=== PATIENT | female | born 1990 | race Caucasian/White ===

== ENCOUNTER 2019-03-30 08:27 | Day surgery (SDC) | payer BC ==
[~2019-03-30 08:27] MED LIST: Lactated Ringers 1,000 ML IV SCH; Lidocaine 1%/Sod Bicarbonate in NS 8.4% 1 ML Syringe IDERM PRN; Sodium Chloride 0.9% 10 ML Syringe FLUSH PRN
[2019-03-30] MEDS ORDERED: Sodium Chloride 0.9% 50 ML SDV ONE (08:56)
[2019-03-30] MEDS ORDERED: Bupivacaine 0.5% 30 ML SDV ONE (08:56)
[2019-03-30] MEDS ORDERED: Ampicillin/Sulbactam Na 3 GM in Sodium Chloride 0.9% 100 ML IV ONE (09:15)
[2019-03-30] MEDS ORDERED: Midazolam 1 MG/ML 2 ML SDV ONE (09:44)
[2019-03-30] MEDS ORDERED: fentaNYL 250 MCG/5 ML SDV ONE (09:44)
[2019-03-30] MEDS ORDERED: Lactated Ringers 1,000 ML ONE (09:44)
[2019-03-30] MEDS ORDERED: Lidocaine 1% 4 ML ONE (09:44)
[2019-03-30] MEDS ORDERED: Ondansetron 4 MG/2 ML SDV ONE (09:44)
[2019-03-30] MEDS ORDERED: Rocuronium 50 MG/5 ML Vial ONE ×2 (09:44→10:51)
[2019-03-30] MEDS ORDERED: Propofol 200 MG/20 ML SDV ONE ×3 (09:44→10:31)
[2019-03-30] MEDS ORDERED: Dexamethasone 4 MG/ML 5 ML MDV ONE (09:45)
[2019-03-30] MEDS ORDERED: Ketamine 500 mg/10 ML MDV ONE (10:31)
[2019-03-30] MEDS ORDERED: HYDROmorphone 0.5 MG/0.5 ML Syringe ONE ×2 (10:45→11:54)
[2019-03-30] MEDS ORDERED: Ondansetron 4 MG/2 ML SDV IVPUSH PRN (11:06)
[2019-03-30] MEDS ORDERED: fentaNYL 100 MCG/2 ML SDV IVPUSH PRN (11:06)
[2019-03-30] MEDS ORDERED: HYDROmorphone 0.5 MG/0.5 ML Syringe IVPUSH PRN (11:06)
[2019-03-30] MEDS ORDERED: diphenhydrAMINE 50 MG/ML SDV IVPUSH PRN (11:06)
--- NOTE | 2019-03-30 11:10 | PCM.PREANE ---
Preanesthetic Assessment - Anesthesia/Transfusion/Family Hx Anesthesia History: Prior Anesthesia Without Reaction Family History of Anesthesia Reaction: No Transfusion History: No Prior Transfusion(s) - Review of Systems General: No Symptoms Pulmonary: No Symptoms Cardiovascular: No Symptoms Gastrointestinal: No Symptoms Neurological: Headache (91) Other: Reports: None (Morbid Obesity BMI 42) - Physical Assessment NPO Status Date: 03/29/19 NPO Status Time: 23:30 Pulse: 91 O2 Sat by Pulse Oximetry: 96 Respiratory Rate: 16 Blood Pressure: 143/81 Temperature: 36.6 C Height: 1.8 m Weight: 136.985 kg ASA Class: 2 Mental Status: Alert & Oriented x3 Airway Class: Mallampati = 1 Dentition: Reports: Normal Dentition Thyro-Mental Finger Breadths: 3 Mouth Opening Finger Breadths: 3 ROM/Head Extension: Full Lungs: Clear to Auscultation, Normal Respiratory Effort Cardiovascular: Regular Rate, Regular Rhythm - Lab Values: Laboratory Last Values Urine HCG, Qual Negative (NEGATIVE) 03/30/19 09:45 - Allergies Allergies/Adverse Reactions: Allergies Allergy/AdvReac Type Severity Reaction Status Date / Time Sulfa (Sulfonamide Allergy Hives Verified 03/29/19 14:12 Antibiotics) hydrocodone AdvReac Headache Verified 03/30/19 09:16 oxycodone AdvReac Headache Verified 03/30/19 09:16 - Acknowledgements Anesthesia Type Planned: General Anesthesia Pt an Appropriate Candidate for the Planned Anesthesia: Yes Alternatives and Risks of Anesthesia Discussed w Pt/Guardian: Yes Pt/Guardian Understands and Agrees with Anesthesia Plan: Yes PreAnesthesia Questionnaire HEENT History: Reports: Impaired Vision Cardiovascular History: Reports: None Respiratory History: Reports: None Gastrointestinal History: Reports: None Genitourinary History: Reports: None [employer]PER[employer] HELPER History: Reports: Other (See Below) Other OB/BYN History: DYSPAREUNIA Musculoskeletal History: Reports: None Neurological History: Reports: None Psychiatric History: Reports: None Endocrine/Metabolic History: Reports: Obesity/BMI 30+ Hematologic History: Reports: None Immunologic History: Reports: None Oncologic (Cancer) History: Reports: None Dermatologic History: Reports: None - Past Surgical History Head Surgeries/Procedures: Reports: None HEENT Surgical History: Reports: Tonsillectomy Cardiovascular Surgical History: Reports: None Respiratory Surgical History: Reports: None GI Surgical History: Reports: None Female Surgical History: Reports: Section Male Surgical History: Reports: None Endocrine Surgical History: Reports: None Neurological Surgical History: Reports: None Musculoskeletal Surgical History: Reports: None Oncologic Surgical History: Reports: None Dermatological Surgical History: Reports: None - SUBSTANCE USE Smoking Status *Q: Former Smoker Recreational Drug Use History: No - HOME MEDS Home Medications: Home Meds Naproxen Sodium 220 - 440 mg PO BID PRN 03/29/19 [History] Norethindrone AC-Eth Estradiol [Junel 1.5 mg-30 Mcg Tablet] 1 tab PO DAILY 03/29 [History] - CURRENT (IN HOUSE) MEDS Current Meds: Current Medications Lactated Ringer's (Ringers, Lactated) 1,000 mls @ 125 mls/hr IV ASDIRECTED TORIE Stop: 03/30/19 23:00 Last Admin: 03/30/19 09:00 Dose: 125 mls/hr Lidocaine/Sodium Bicarbonate (Buffered Lidocaine 1% In Ns 8.4%) 0.25 ml IDERM ONETIME PRN PRN Reason: Prior to IV Start Stop: 03/30/19 23:00 Last Admin: 03/30/19 08:59 Dose: 0.25 ml Sodium Chloride (Saline Flush) 10 ml FLUSH ASDIRECTED PRN PRN Reason: Keep Vein Open Stop: 03/30/19 23:00 Discontinued Medications Bupivacaine HCl (Marcaine 0.5%) Confirm Administered Dose 30 ml .ROUTE .STK-MED ONE Stop: 03/30/19 08:57 Dexamethasone (Dexamethasone) Confirm Administered Dose 20 mg .ROUTE .STK-MED ONE Stop: 03/30/19 09:46 Fentanyl (Sublimaze) Confirm Administered Dose 250 mcg .ROUTE .STK-MED ONE Stop: 03/30/19 09:45 Hydromorphone HCl (Dilaudid) Confirm Administered Dose 0.5 mg .ROUTE .STK-MED ONE Stop: 03/30/19 10:46 Ampicillin Sodium/Sulbactam (Sodium 3 gm/ Sodium Chloride) 100 mls @ 200 mls/ hr IV ONETIME ONE Stop: 03/30/19 09:44 Lidocaine HCl (Xylocaine-Mpf 1%) Confirm Administered Dose 4 mls @ as directed .ROUTE .STK-MED ONE Stop: 03/30/19 09:45 Lactated Ringer's (Ringers, Lactated) Confirm Administered Dose 1,000 mls @ as directed .ROUTE .[facility]-MED ONE Stop: 03/30/19 09:45 Ketamine HCl (Ketalar) Confirm Administered Dose 500 mg .ROUTE .[facility]-MED ONE Stop: 03/30/19 10:32 Midazolam HCl (Versed 1 Mg/Ml) Confirm Administered Dose 2 mg .ROUTE .ST-MED ONE Stop: 03/30/19 09:45 Ondansetron HCl (Zofran) Confirm Administered Dose 4 mg .ROUTE .ST-MED ONE Stop: 03/30/19 09:45 Propofol (Diprivan 20 Ml) Confirm Administered Dose 200 mg .ROUTE .ST-MED ONE Stop: 03/30/19 09:45 Propofol (Diprivan 20 Ml) Confirm Administered Dose 200 mg .ROUTE .ST-MED ONE Stop: 03/30/19 10:28 Propofol (Diprivan 20 Ml) Confirm Administered Dose 200 mg .ROUTE .[facility]-MED ONE Stop: 03/30/19 10:32 Rocuronium [place] (Zemuron) Confirm Administered Dose 50 mg .ROUTE .ST-MED ONE Stop: 03/30/19 09:45 Rocuronium [place] (Zemuron) Confirm Administered Dose 50 mg .ROUTE .ST-MED ONE Stop: 03/30/19 10:52 Sodium Chloride (Normal Saline) Confirm Administered Dose 50 ml .ROUTE .STK-MED ONE Stop: 03/30/19 08:57
[2019-03-30] MEDS ORDERED: Neostigmine Methylsulfate 1 MG/ML 5 ML Syringe ONE (11:22)
[2019-03-30] MEDS ORDERED: Iohexol 647 MG/ML 100 ML Bottle ONE (11:32)
[2019-03-30] MEDS ORDERED: Ketorolac 30 MG/ML SDV ONE (12:04)
[2019-03-30] MEDS ORDERED: fentaNYL 100 MCG/2 ML SDV ONE (12:08)
--- NOTE | 2019-03-30 12:16 | PCM.OPNOTE ---
- General Post-Op/Procedure Note Date of Surgery/Procedure: 03/30/19 Operative Procedure(s): lap richard with IOC Pre Op Diagnosis: cholelithiasis Post-Op Diagnosis: Same Anesthesia Technique: MAC Primary Surgeon: Prasanna Grant EBL in mLs: 10 Complications: None Condition: Good
--- NOTE | 2019-03-30 12:33 | PCM.POSTAN ---
POST ANESTHESIA ASSESSMENT - MENTAL STATUS Mental Status: Oriented, Other (Drowsy) - VITAL SIGNS Pulse Rate: 88 SaO2: 94 Resp Rate: 23 Blood Pressure: 154/75 Temperature: 37.2 C - RESPIRATORY Respiratory Status: Respiratory Rate WNL, Airway Patent, O2 Saturation Stable, Supplemental Oxygen - CARDIOVASCULAR CV Status: Pulse Rate WNL, Blood Pressure Stable - GASTROINTESTINAL GI Status: No Symptoms - PAIN Pain Score: 0 - POST OP HYDRATION Hydration Status: Adequate & Stable
--- NOTE | 2019-03-30 13:33 | CR ---
Operative cholangiogram: Multiple fluoroscopic spot views were obtained during operative cholangiogram utilizing C-arm device. There is opacification seen of the CHD and CBD with no filling defects seen to indicate retained stone. Contrast is noted within the duodenum. Impression: 1. No abnormality is seen on operative cholangiogram study. Diagnostic code #1
[2019-03-30 14:39] VITALS: BP 123/70
--- NOTE | 2019-03-31 07:42 | OR ---
DATE OF OPERATION: 03/30/2019 SURGEON: Prasanna Grant MD PREOPERATIVE DIAGNOSIS: Cholelithiasis. POSTOPERATIVE DIAGNOSIS: Cholelithiasis. OPERATION PERFORMED: Laparoscopic cholecystectomy with intraoperative cholangiogram. ESTIMATED BLOOD LOSS: 5 mL. FINDINGS: Gallstones. Cholangiogram was normal with right and left hepatic ducts seen with free flow of dye into the duodenum. DESCRIPTION OF PROCEDURE: The patient taken to the operating room, placed in a supine position, monitoring equipment, and given a general anesthetic and intubated. SCDs were placed. Antibiotics were given and the abdomen prepped with chlorhexidine, alcohol prepped and draped off in a sterile fashion. An incision was made just above the umbilicus. Using a 5 mm Opti port, the abdominal cavity was entered. A 5 mm 0 degree camera was inserted, the abdominal cavity was scanned showing the gallbladder right upper quadrant wrapped in fat. A 10 mm trocar placed in the epigastrium, 5 mm trocar placed in right upper quadrant, one right lower quadrant. The fat was removed from the fundus of the gallbladder and the fundus was grasped and retracted and a cephalad position patient placed in reverse Trendelenburg leftward tilt and the fat was then removed from the surface of the gallbladder to Jordyn pouch was identified. This was retracted in a caudal position. Calot's triangle dissected out showing cystic duct ran fine onto the gallbladder. It was taken down between clips and cut and all this opened up Calot's triangle so as to see the cystic duct Jordyn pouch junction. A clip was placed on the cystic duct Jordyn pouch junction and an incision was made in the cystic duct after milking it. A cholangiocatheter was inserted, and cholangiogram was then obtained using the C-arm and contrast material diluted with equal parts of saline. This showed the above findings. The cystic duct was dissected out further and then 2 clips placed on the cystic duct. Cystic duct was cut and the gallbladder was then dissected from its attachments to the liver placed in an endobag and removed from the abdominal cavity. The camera was reinserted. Excellent hemostasis noted. Only 10 mL blood loss and the area was then irrigated. This completed the intraabdominal portion. Pneumoperitoneum and ports were removed and the skin of each port closed with subdermal 4-0 Dexon suture. Steri-Strips and sterile dressing placed and 0.5% Marcaine was instilled in each incision. The patient tolerated the procedure and sent to recovery room in a stable condition. ANESTHESIA: SENAIT /[id number]
== END 2019-03-30 14:42 | disposition home or self-care (01) ==
LOC: JD.SDS 08:27
PROVIDERS: ATTEND Surgery
DX: K80.10 Calculus of gallbladder with chronic cholecystitis without obstruction (principal); E66.01 Morbid (severe) obesity due to excess calories; Z68.41 Body mass index [BMI] 40.0-44.9, adult; Z87.891 Personal history of nicotine dependence; Z88.5 Allergy status to narcotic agent; Z88.2 Allergy status to sulfonamides; Z79.1 Long term (current) use of non-steroidal anti-inflammatories (NSAID); Z79.3 Long term (current) use of hormonal contraceptives
CPT/HCPCS: 47563; 76000; 81025; J1100; J1170; J1885; J2001; J2250; J2405; J2704; J2710; J3010; J3490; J7120; Q9967; 00790